=== PATIENT | male | born 1990 | race Hispanic/Latino ===

== ENCOUNTER 2017-04-24 02:08 | Emergency (ER) | payer SELFPAY ==
[2017-04-24 02:25] VITALS: BP 145/83
[2017-04-24] MEDS ORDERED: METHYLPREDNISOLONE SOD SUCC/PF 125 MG/2 ML VIAL IM ONE (02:28)
[2017-04-24] MEDS ORDERED: METHYLPREDNISOLONE SOD SUCC/PF 125 MG/2 ML VIAL ONE (02:31)
--- NOTE | 2017-04-24 02:52 | ERNOTE ---
Integumentary HPI - General Presenting Symptoms: rash Time Seen by Provider: 04/24/17 02:18 Source: patient, family, RN notes reviewed Exam Limitations: language barrier - [place] speaking only - Immun/Allergies/Home Medications Immunizations: IMMUNIZATION HX Immunizations Up to Date Yes History of Influenza Vaccine No Hx Pneumococcal Vaccination No Allergies/Adverse Reactions: Allergies Allergy/AdvReac Type Severity Reaction Status Date / Time No Known Allergies Allergy Unverified 04/24/17 02:25 Home Medications: HOME MEDICATIONS RX: Methylprednisolone [Medrol Dosepak] 4 mg PO QID #21 tab 04/24/17 [Last Taken Unknown] - History of Present Illness Narrative: Patient complains of a rash X 2 weeks, worse after working, has gotten better usually by taking OTC Benadryl. Tonight the rash was not alleviated by the Benadryl, and he found himself unable to sleep because he was itching so bad. His notes that she just changed to Tide detergent in the last month, and this has worsened in the last two weeks. Location: Reports: generalized, axillary, lower extremity Quality: Reports: itching, painful Severity: moderate Exposure: Reports: soaps/detergent Modifying Factors - (Improves): Reports: antihistamine, scratching Modifying Factors - (Worsens): Reports: scratching Associated Symptoms: Reports: rash Review of Systems - Review of Systems Constitutional: Absent: recent illness, fever, chills EYE: Present: no symptoms reported ENT: Absent: ear pain, sore throat Respiratory: Absent: shortness of breath, cough Cardiology: Absent: chest pain Gastrointestinal/Abdominal: Absent: nausea, vomiting, diarrhea, abdominal pain Genitourinary: Present: no symptoms reported Musculoskeletal: Present: no symptoms reported Skin: Present: rash, dryness, lesions, change in color Neurological: Present: no symptoms reported Endocrine: Present: no symptoms reported - Patient's Past Medical History Patient History - Medical: No pertinent hx Patient History - Cardiac/Respiratory: No pertinent hx Patient History - Cancer: No Hx of Cancer Patient History - Surgical Procedures: No surgical history Patient History - Other: None - Social History Living Situations: spouse Abuse History: No History of abuse Psych History: No pertinent hx Smoking Status: Never smoker Have you smoked in the past 12 months: No Do you dip or chew tobacco: No Alcohol Use: heavy Drug Use: none - Immunizations Immunizations Up to Date: Yes Hx Pneumococcal Vaccination: No History of Influenza Vaccine: No Physical Exam - Physical Exam General Appearance: Present: wd/wn, alert, mild distress, anxious Head Exam: Present: normal inspection, no evidence of injury Eye Exam: Normal inspection: bilateral, EOMI: bilateral Ears, Nose, Throat: Present: normal ENT inspection Neck: Present: normal inspection, nontender Respiratory: Present: no respiratory distress, normal breath sounds, no accessory muscle use, lungs clear Cardiovascular/Chest: Present: regular rate, rhythm, no murmur Gastrointestinal/Abdominal: Present: normal bowel sounds, nontender, nondistended, soft Back Exam: Present: normal inspection, normal range of motion Extremity Exam: Present: normal inspection, non-tender, normal range of motion, no edema Neurological Exam: Present: alert, oriented, normal mood/affect, no motor/ sensory deficits Skin Exam: Present: skin rash - worse on bilateral axilla and bilateral lower extremities with sores scratched into the lower extremities ED Progress - Vital Signs Patient's Vital Signs:: I have reviewed the patient's vital signs. Vital Signs: Vital Signs 04/24/17 02:13 Temperature 36.7 C Pulse Rate 61 Respiratory 16 Rate Blood Pressure 145/83 O2 Sat by Pulse 100 Oximetry - Progress/Reassessment Chief Complaint: Rash Plan - Plan Plan: Solu-medrol 125 mg IM Departure Clinical Impression: Allergic contact dermatitis due to detergent - Departure Disposition: Home self-care Condition: Good Instructions: Contact Dermatitis, Pruritus Print Language: [place] Referrals: Family Practice [Provider Group] (In the next 7-10 days, sooner if your itching and rash does not improve. Please find and establish with a local physician.) Prescriptions: RX: Methylprednisolone [Medrol Dosepak] 4 mg PO QID #21 tab
== END 2017-04-24 02:56 | disposition home or self-care (01) ==
LOC: ER 02:08
DX: L23.89 Allergic contact dermatitis due to other agents (principal)